=== PATIENT | female | born 2000 | race Caucasian/White ===

== ENCOUNTER → 2023-12-11 | Outpatient (CLI) | payer BC, SELFPAY | LOC: M RAD 14:44 | PROVIDERS: ATTEND Physician Assistant | DX: R10.2 Pelvic and perineal pain (principal) ==

== ENCOUNTER → 2024-07-29 | Outpatient (REF) | payer BC | LOC: M PLALAB 12:43 | PROVIDERS: ATTEND Advanced Practice Midwife | DX: O20.9 Hemorrhage in early pregnancy, unspecified (principal) ==

== ENCOUNTER → 2024-08-01 | Outpatient (CLI) | payer BC | LOC: M PLALAB 08:23 | PROVIDERS: ATTEND Advanced Practice Midwife | DX: O20.9 Hemorrhage in early pregnancy, unspecified (principal) ==

== ENCOUNTER → 2024-08-08 | Outpatient (CLI) | payer BC | LOC: M PLALAB 08:24 | PROVIDERS: ATTEND Advanced Practice Midwife | DX: Z34.90 Encounter for supervision of normal pregnancy, unspecified, unspecified trimester (principal); Z3A.00 Weeks of gestation of pregnancy not specified ==

== ENCOUNTER → 2024-08-10 | Outpatient (CLI) | payer BC | LOC: M PLALAB 08:02 | PROVIDERS: ATTEND Advanced Practice Midwife | DX: Z34.90 Encounter for supervision of normal pregnancy, unspecified, unspecified trimester (principal) ==

== ENCOUNTER → 2024-08-12 | Outpatient (REF) | LOC: M EMP 07:38 | PROVIDERS: ATTEND Family Medicine | DX: Z20.828 Contact with and (suspected) exposure to other viral communicable diseases (principal) ==

== ENCOUNTER 2024-08-14 08:03 | Emergency (ER) | payer BC ==
[~2024-08-14] VITALS: Ht 152.4 cm; Wt 123.6 kg
[2024-08-14 09:00] LABS: BASO # 0.1 10^3/uL (0.0-0.2); BASO % 0.6 % (0.0-1.0); EOS # 0.1 10^3/uL (0.0-0.5); EOS % 1.4 % (0.0-3.0); HEMOGLOBIN 13.2 g/dl (12.0-15.5); LYMPH # 2.4 10^3/uL (1.5-5.0); LYMPH % 26.7 % (24.0-44.0); MEAN CORPUSCULAR HEMOGLOBIN 29.4 pg (27.0-33.0); MEAN CORPUSCULAR VOLUME 89.1 fl (80.0-96.0); MONO # 0.6 10^3/uL (0.0-0.8); MONO % 6.8 % (2.0-8.0); NEUTROPHILS # 5.8 10^3/uL (1.5-8.5); NEUTROPHILS % 64.2 % (36.0-66.0); PLATELET COUNT, AUTOMATED 350 10^3/uL (150-450); RED BLOOD COUNT 4.49 10^6/uL (4.00-5.40)
[2024-08-14 09:06] VITALS: TEMP 97.9
[2024-08-14 10:48] LABS: APPEARANCE, URINE CLEAR (CLEAR); BACTERIA, URINE AUTO NEGATIVE (NEGATIVE); BILIRUBIN, URINE AUTO NEGATIVE (NEGATIVE); BLOOD, URINE BLOOD NEGATIVE (NEGATIVE); COLOR, URINE YELLOW (YELLOW); GLUCOSE, URINE (UA) AUTO NEGATIVE (NEGATIVE); KETONE, URINE AUTO NEGATIVE (NEGATIVE); LEUKOCYTE ESTERASE, URINE AUTO NEGATIVE (NEGATIVE); MUCUS, URINE SMALL (NEGATIVE); NITRITE, URINE AUTO NEGATIVE (NEGATIVE); PROTEIN, URINE AUTO NEGATIVE (NEGATIVE); RBC, URINE AUTO 0 /HPF (0-3); SPECIFIC GRAVITY URINE AUTO 1.011 (1.002-1.035); SQUAMOUS EPITHELIAL CELL UR AU 1 /HPF (0-6); UROBILINOGEN, URINE AUTO 0.2 mg/dL (0.0-2.0); WBC, URINE AUTO 1 /HPF (0-3)
[2024-08-14 12:30] VITALS: BP 125/87; O2SAT 100
== END 2024-08-14 12:32 | disposition home or self-care (01) ==
LOC: M ED 08:03
DX: O20.0 Threatened abortion (principal); Z3A.01 Less than 8 weeks gestation of pregnancy

== ENCOUNTER → 2024-08-31 | Outpatient (CLI) | payer BC | LOC: M PLALAB 12:12 | PROVIDERS: ATTEND Advanced Practice Midwife | DX: O02.1 Missed abortion (principal) ==

== ENCOUNTER → 2024-09-07 | Outpatient (CLI) | payer BC | LOC: M PLALAB 11:25 | PROVIDERS: ATTEND Advanced Practice Midwife | DX: O02.1 Missed abortion (principal) ==

== ENCOUNTER → 2024-09-14 | Outpatient (CLI) | payer BC | LOC: M PLALAB 08:15 | PROVIDERS: ATTEND Advanced Practice Midwife | DX: O02.1 Missed abortion (principal) ==

== ENCOUNTER → 2024-09-21 | Outpatient (CLI) | payer BC | LOC: M PLALAB 08:36 | PROVIDERS: ATTEND Advanced Practice Midwife | DX: O02.1 Missed abortion (principal) ==

== ENCOUNTER → 2024-09-28 | Outpatient (CLI) | payer BC | LOC: M PLALAB 08:13 | PROVIDERS: ATTEND Advanced Practice Midwife | DX: O02.1 Missed abortion (principal) ==

== ENCOUNTER → 2024-10-05 | Outpatient (CLI) | payer BC | LOC: M PLALAB 07:53 | PROVIDERS: ATTEND Advanced Practice Midwife | DX: O02.1 Missed abortion (principal) ==

== ENCOUNTER → 2024-10-12 | Outpatient (CLI) | payer BC | LOC: M PLALAB 08:11 | PROVIDERS: ATTEND Advanced Practice Midwife | DX: O02.1 Missed abortion (principal) ==

== ENCOUNTER → 2024-10-19 | Outpatient (CLI) | payer BC | LOC: M PLALAB 07:58 | PROVIDERS: ATTEND Advanced Practice Midwife | DX: O02.1 Missed abortion (principal) ==

== ENCOUNTER → 2024-11-02 | Outpatient (CLI) | payer BC ==
[2024-11-02 15:24] LABS: HEMATOCRIT 35.4 % (36.0-47.0); HEMOGLOBIN 11.5 g/dl (12.0-15.5); MEAN CORPUSCULAR HEMOGLOBIN 29.3 pg (27.0-33.0); MEAN CORPUSCULAR HGB CONC 32.5 g/dl (32.0-36.5); MEAN CORPUSCULAR VOLUME 90.1 fl (80.0-96.0); PLATELET COUNT, AUTOMATED 375 10^3/uL (150-450); RED BLOOD COUNT 3.93 10^6/uL (4.00-5.40); WHITE BLOOD COUNT 12.5 10^3/uL (4.0-10.0)
== END ==
LOC: M PLALAB 13:11
PROVIDERS: ATTEND Advanced Practice Midwife
DX: O02.1 Missed abortion (principal)

== ENCOUNTER → 2024-11-02 | Outpatient (CLI) | payer BC, OTHER | LOC: M WHC 12:16 | PROVIDERS: ATTEND Advanced Practice Midwife | DX: O02.1 Missed abortion (principal) ==

== ENCOUNTER → 2024-12-05 | Outpatient (CLI) | payer OTHER | LOC: M PLALAB 11:44 | PROVIDERS: ATTEND Advanced Practice Midwife | DX: Z32.01 Encounter for pregnancy test, result positive (principal) ==

== ENCOUNTER → 2025-01-06 | Outpatient (CLI) | payer OTHER ==
[2025-01-06 11:49] LABS: HEMATOCRIT 35.6 % (36.0-47.0); HEMOGLOBIN 11.5 g/dl (12.0-15.5); MEAN CORPUSCULAR HEMOGLOBIN 28.3 pg (27.0-33.0); MEAN CORPUSCULAR HGB CONC 32.3 g/dl (32.0-36.5); MEAN CORPUSCULAR VOLUME 87.7 fl (80.0-96.0); PLATELET COUNT, AUTOMATED 393 10^3/uL (150-450); RED BLOOD COUNT 4.06 10^6/uL (4.00-5.40); WHITE BLOOD COUNT 10.9 10^3/uL (4.0-10.0)
[2025-01-06 12:19] LABS: THYROID STIMULATING HORMONE 1.406 uIU/ML (0.55-4.78)
[2025-01-06 12:20] LABS: TESTOSTERONE 39 NG/DL (14-76)
[2025-01-06 12:21] LABS: ALBUMIN 3.5 G/DL (3.2-5.2); ALKALINE PHOSPHATASE 87 U/L (35-104); ALT/SGPT 14 U/L (7.0-40); AST/SGOT 11 U/L (<34); BILIRUBIN,TOTAL 0.8 MG/DL (0.3-1.2); BLOOD UREA NITROGEN 11 MG/DL (9-23); CALCIUM LEVEL 8.9 MG/DL (8.5-10.1); CARBON DIOXIDE LEVEL 26 MMOL/L (20-31); CHLORIDE LEVEL 109 MMOL/L (98-107); CHOLESTEROL LEVEL 150 MG/DL (<200); CHOLESTEROL RISK RATIO 2.68 (<5); CREATININE FOR GFR 0.65 MG/DL (0.55-1.30); FOLLICLE STIMULATING HORMONE 2.9 mIU/ML; GLOMERULAR FILTRATION RATE > 60.0 (>60); GLUCOSE, FASTING 78 MG/DL (60-100); HDL CHOLESTEROL 55.8 MG/DL (>40); LDL CHOLESTEROL 83.8 MG/DL (<100); NON-HDL-C 94.2 MG/DL; POTASSIUM SERUM 4.7 MMOL/L (3.5-5.1); PROLACTIN 7.97 NG/ML; SODIUM LEVEL 141 MMOL/L (136-145); TOTAL PROTEIN 6.5 G/DL (5.7-8.2); TRIGLYCERIDES LEVEL 52 MG/DL (<150)
[2025-01-06 12:28] LABS: HCG, SERUM QUALITATIVE NEGATIVE (NEGATIVE)
== END ==
LOC: M PLALAB 08:46
PROVIDERS: ATTEND Nurse Practitioner Family
DX: R53.83 Other fatigue (principal); E28.2 Polycystic ovarian syndrome

== ENCOUNTER → 2025-03-20 | Outpatient (CLI) | payer OTHER | LOC: M PLALAB 10:25 | PROVIDERS: ATTEND Specialist | DX: Z34.90 Encounter for supervision of normal pregnancy, unspecified, unspecified trimester (principal); Z3A.00 Weeks of gestation of pregnancy not specified ==

== ENCOUNTER → 2025-03-22 | Outpatient (CLI) | payer OTHER | LOC: M PLALAB 07:43 | PROVIDERS: ATTEND Specialist | DX: Z34.90 Encounter for supervision of normal pregnancy, unspecified, unspecified trimester (principal); Z3A.00 Weeks of gestation of pregnancy not specified ==

== ENCOUNTER → 2025-03-27 | Outpatient (CLI) | payer OTHER | LOC: M PLALAB 07:32 | PROVIDERS: ATTEND Advanced Practice Midwife | DX: O09.299 Supervision of pregnancy with other poor reproductive or obstetric history, unspecified trimester (principal); Z3A.00 Weeks of gestation of pregnancy not specified ==

== ENCOUNTER → 2025-07-19 | Outpatient (CLI) | payer OTHER | LOC: M LAB 11:56 | PROVIDERS: ATTEND Advanced Practice Midwife | DX: Z87.59 Personal history of other complications of pregnancy, childbirth and the puerperium (principal) ==

== ENCOUNTER → 2025-07-21 | Outpatient (CLI) | payer OTHER | LOC: M LAB 12:03 | PROVIDERS: ATTEND Advanced Practice Midwife | DX: Z87.59 Personal history of other complications of pregnancy, childbirth and the puerperium (principal) ==